=== PATIENT | female | born 1970 | race Hispanic/Latino ===

== ENCOUNTER 2019-07-27 15:40 | Observation (INO) | payer BC ==
[2019-07-27 16:15] LABS: Absolute Lymphocytes (CBC) 2.5 K/uL (0.7-4.9); Basophils % 0.4 % (0-1.3); Hematocrit 42.8 % (36.0-45.0); Lymphocytes % 44.6 % (15.3-44.8); MPV 9.7 fL (7.6-11.3); RBC Red Blood Cell Count 4.86 M/uL (3.86-4.86)
[2019-07-27 16:16] LABS: Urine Appearance CLEAR; Urine Bilirubin NEGATIVE (NEG); Urine Blood NEGATIVE (NEG); Urine Color YELLOW; Urine Glucose NEGATIVE (NEG); Urine Protein NEGATIVE (NEG); Urine Specific Gravity 1.015 (1.005-1.030); Urine Urobilinogen 0.2 mg/dL (0.2-1.0)
[2019-07-27] MEDS ORDERED: SCOPOLAMINE HYDROBROMIDE PATCH TD ONE (16:19)
[2019-07-27] MEDS ORDERED: Ringers Lactate 1,000 ML IV ONE (16:19)
[2019-07-27 16:23] LABS: Urine Microscopic Reflex NO UMIC
[2019-07-27] MEDS ORDERED: SUCCINYLCHOLINE 20 MG/ML (10 ML) IV ONE (17:00)
[2019-07-27] MEDS ORDERED: FENTANYL CITR 250 MCG/5 ML ONE (17:04)
[2019-07-27] MEDS ORDERED: ROCURONIUM 50 MG/5 ML VIAL IV ONE ×2 (17:04→18:58)
[2019-07-27] MEDS ORDERED: PROPOFOL 200 MG/20 ML VIAL IV ONE (17:04)
[2019-07-27] MEDS ORDERED: MIDAZOLAM HCL 2 MG/2 ML INJ ONE (17:05)
[2019-07-27] MEDS ORDERED: BUPIVACAINE 0.25% PF 30 ML VIAL ONE (17:19)
[2019-07-27] MEDS ORDERED: GLYCOPYRROLATE 0.2 MG/ML SYR ONE ×2 (18:10→19:08)
[2019-07-27] MEDS: Ringers Lactate 1,000 ML IV ONE ×2 (18:15→18:33)
[2019-07-27] MEDS ORDERED: KETOROLAC 30 MG/ML INJ ONE (18:55)
[2019-07-27] MEDS ORDERED: NEOSTIGMINE 1 MG/ML -10 ML VIAL ONE (19:08)
[2019-07-27] MEDS ORDERED: ONDANSETRON 4 MG/2 ML VIAL ONE (19:39)
[2019-07-27] MEDS ORDERED: PROMETHAZINE 25 MG/ML VIAL ONE (19:49)
[2019-07-27] MEDS: HYDROMORPHONE HCL 1 MG/ML INJ ONE ×2 (19:54→19:59)
[2019-07-27 20:02] VITALS: O2SAT 98
[2019-07-27 20:53] VITALS: BMI 27.8
[2019-07-27 21:08] VITALS: BP 126/74; TEMP 98.4
--- NOTE | 2019-07-28 02:45 | OP ---
Date of Procedure: 07/27/2019 Surgeon: Kortney Fam MD Director Broadcast: Farhana Watters. Preoperative Diagnoses: Left lower quadrant pain, left adnexal mass 4 cm, possible torsion. Postoperative Diagnoses: Left lower quadrant pain, left paratubal cyst and hydrosalpinx, dense bilat eral tubo-ovarian adhesions to the sigmoid colon to the lateral wall and sigmoid colon to the vaginal cuff and the lateral hickman. Procedures Performed: Diagnostic laparoscopy; bilateral salpingo-ovariolysis; extensive lysis of sig moid adhesions from the lateral hickman on both sides and the vaginal cuff, as well as from the ovaries , which were densely adhered to the bowel; and right ovariopexy. Anesthesia: General endotracheal. Specimens: Bilateral tubes and left ovary. Complications: No complications. Drains: No drains. Condition: Stable. Estimated Blood Loss: Minimal. Findings: Appendix normal. Bladder unremarkable. Adhesions as discussed above. The right ovary had to be released from the adhesions at the level of the vaginal cuff and right late ral wall and ovariopexy was done to the pelvic sidewall peritoneum at the level where the round ligam ent was taken. This was done to make sure that there was no ovarian torsion if there was a cyst that would form on t he right ovary. Indications For Procedure: Patient is a 48-year-old, presented with acute onset left lower quadrant pain. CT scan showed a 1.5 cm cyst on the left ovary. However, on the transvaginal ultrasound, ther e appeared to be a cyst on the left ovary about 4 cm. Patient had acute onset tenderness and pain an d the tenderness was severe. Pain radiating all the way up to her left upper back. No costovertebra l angle tenderness. After clinical exam and evaluation, patient was thought to have potentially ovar eboni torsion, so diagnostic laparoscopy was to be performed. Left ovarian cystectomy and preservation of the ovary were discussed, possible oophorectomy was also discussed. Bilateral salpingectomy tube s were found was discussed and then the patient was brought to the OR. Description Of Procedure: After informed consent was verified, she was taken back to OR, placed in s upine fashion on the operating table. General anesthesia was given. Patient was placed in the dorsa l lithotomy position. Pelvic exam was performed. No adnexal masses were palpable. Abdomen, vulva, vagina, and perineum were prepped and draped in a sterile fashion. No antibiotics were given. SCDs were not indicated by ACOG guidelines. Fairbanks was placed to drain the bladder, and a vaginal manipulator with sponge on a stick was placed. 1 cm infraumbilical incision was made with a scalpel along the umbilical scar for the abdominoplasty and incision was made on the fascia, incised with 15 blade and tagged with 0 Vicryl sutures. Periton eum was picked up with hemostats and entered sharply. S-retractors were placed. Tory introduced. Peritoneal cavity was insufflated optimally. Patient was placed in Trendelenburg position after sit e of entry was checked and was unremarkable. Upper abdominal surface was unremarkable as well. Then , visualized the adhesions. Left lower quadrant 5 and suprapubic 5 ports were placed after Marcaine was injected in the sites at the level of the fascia and the skin and the pelvic cavity was surveyed. There were adhesions of the sigmoid epiploica to the anterior abdominal wall on the left side. The n, there were adhesions of the sigmoid colon starting at the natural attachment and from there all th e way to the tubes and ovaries very densely, specially the left ovary was extremely densely adhered t o the fat surrounding the bowel wall. On the right side, similar problem was also encountered; howev er, this was more stuck at the level of the vaginal cuff. Due to the patient's pain being on the left side with also hydrosalpinx noted, paratubal cyst noted, so plan was to remove the tube and release the ovary in an attempt to take down the adhesions of the bowel from the pelvic sidewall. A window was created enough after the tube was detached from the dary ewall as well as ovary. There was a window between the sidewall and the ovarian adhesion to the sigm oid colon through which there could be an internal hernia. So, at this point, it was very important I release the ovary from the bowel and so this was done. The plane between the ovary immediately nex t to the ovarian surface was opened up, and gradually staying in the fat keeping the fat towards the bowel wall dissection was performed carefully using the bipolar sparingly. Tip of the LigaSure was u sed for cauterizing the vessels here within the fat. The entire ovary was then removed with sharp di ssection with scissors mostly. Once this was released from the bowel, then the mesosalpinx had been dissected. The tube was dissected away from the sidewall and air was removed. The infundibulopelvic ligament was isolated further it from the medial leaf of the broad ligament, where the ur eter was present; and once the pedicle was nicely released, then this was taken down with the help of the LigaSure and the specimen placed in the cul-de-sac. The sigmoid adhesions to the left aspect of the vaginal cuff and left lateral wall were all taken down with sharp dissection with scissors witho ut entering the peritoneum and staying on the side of the colon. Once this was all done and this was released, there was dense adhesion of the bowel wall to the posterior aspect of the vaginal cuff, so this was released gradually by staying on top of the vaginal cuff, although there was a good plane w here the with the adhesions could be taken down sharply with the help of scissors. The entire dissec tion was performed with scissors. Once the bowel wall was released from the vaginal cuff, the vaginal manipulator was moved accordingly to help with countertraction. Then, attention was directed to the right side. The entire sigmoid c olon from the right sidewall was released and the adhesions of the tube to the bowel were released. The tube was from the ovary. It was surrounding the medial aspect of the ovary and all leatha und it. The tube was then removed. Then, another window was between the ovary and the sigmoid colon , and so the ovary was dissected away from the sigmoid colon epiploicae. Then, once this was detache d, the right ovary was released and it was released from the sidewall as well by staying on the perit tovar side and the ovarian tissue from the sidewall carefully avoiding the ureter. Once this was done and adequate mobilization was performed on the infundibulopelvic ligament, here th is was taken with the help of 3-0 Monocryl sutures. It was sutured to the sidewall peritoneum at the distal part of the area where the round ligament was taken down. On visualization of the ureter, th e ureter was in the medial leaf. There were adhesions of the infundibulopelvic ligament and the broa d ligament folding to the inferior aspect of the broad ligament overlying the ureter, and this space was slightly obliterated. I did not have to release all this in order to perform the ovariopexy, so I just left them there, but the ureter had normal peristalsis all the way to the ureteric tunnel. Th e pexy was done with 2 sutures of [id number]-gc-glfj and then spysfo-st-jpmal was performed to the sidewa ll. The ends were cut very short. Thorough irrigation and suction were performed. There was excell ent hemostasis on the bowel wall. No bleeding. In the fat surrounding the bowel, there was some ble eding, which was cauterized with the help of the tip of the LigaSure. There was excellent hemostasis . Good vascularized tissue on the bowel wall, not even a serosal tear could be appreciated at this p oint. Thorough irrigation and suction were performed in the pelvic cavity. 10 scope was changed to a 5 and bag placed through the suprapubic incision and all 3 specimens placed in here and retrieved. Thorough irrigation and suction were performed. Marcaine was injected at the sites of all 3 incisio ns. The trocar was removed and gas was desufflated. Fascia was closed with 0 Vicryl tag sutures tie d together and then subcutaneous single 0 Vicryl suture. All the skin incisions were closed with the help of interrupted Vicryl sutures 4-0 and then Dermabond placed, and vaginal sponge and stick were removed. Fairbanks was removed. Instrument, needle, and sponge counts were correct at the end the case. Patient tolerated the procedure well. She was recovered from anesthesia and taken to PACU in stabl e condition. She has intact 1 ovary, which is the right one. Both tubes were removed and the left o vary was removed as well. All the bowel adhesions were released and the pelvis was completely free o f adhesions as well as it was hemostatic. She will follow up with me in 1 week. She will be [facility] later today. ELÍAS/LEONID Voice ID: [id number] Report ID: [id number]
== END 2019-07-27 21:55 | disposition home or self-care (01) ==
LOC: OR 15:40 → 2ND-WC 20:26
PROVIDERS: ADMIT Obstetrics & Gynecology; ATTEND Obstetrics & Gynecology
PROC: 0UT14ZZ Resection of Left Ovary, Percutaneous Endoscopic Approach (ICD-10-PCS; 2019-07-27)
PROC: 0UT74ZZ Resection of Bilateral Fallopian Tubes, Percutaneous Endoscopic Approach (ICD-10-PCS; 2019-07-27)
PROC: 0UN24ZZ Release Bilateral Ovaries, Percutaneous Endoscopic Approach (ICD-10-PCS; principal; 2019-07-27 17:00)
DX: N83.292 Other ovarian cyst, left side (principal); N83.8 Other noninflammatory disorders of ovary, fallopian tube and broad ligament; N70.11 Chronic salpingitis; N73.6 Female pelvic peritoneal adhesions (postinfective)
CPT/HCPCS: 85025; 36415; 86900; 86850; 86901; 88305; 81003; 58660; 58661; J2704; J2710; J2550; J0330; J2250; J3010; J1170; J7120 ×2; J2405; G0379; G0378

== ENCOUNTER 2023-03-15 04:30 | Emergency (ER) | payer BC ==
--- OUTSIDE RECORDS SUMMARY | 2023-03-15 04:33 | XMS REPORT | Continuity of Care Document ---
:1970 Author Organization [facility] t Address [address] [place] [address] [address] [place] [address] Care Team Providers Name Role Phone Erica Mac Primary Care Physician [phone] ERICA RAMIREZ Attending Clinician Unavailable Radiology Attending Clinician Unavailable RADIOLOGY Attending Clinician Unavailable Lab, Adc Fam Pob I Attending Clinician Unavailable Luli Azar Attending Clinician LULI AL Attending Clinician Unavailable Payers Payer Name Policy Type Policy Number Effective Date Expiration Date S ource Problems This patient has no known problems. Allergies, Adverse Reactions, Alerts Allergy Allergy Status Severity Reaction(s) Onset Inactive Treating Comm ents Source Name Type Date Date Clinician NO KNOWN Drug Active [facility]ERGIE Class [facility] Social History Social Habit Start Date Stop Date Quantity Comments Source Exposure to 2022-06-29 2022-07-09 Not sure [facility] SARS-CoV-2 (event) 00:00:00 09:34:00 Medica l Branch Sex Assigned At [birth year] [facility] 00:00:00 00:00:00 Medical Branch Smoking Status Start Date Stop Date Source Tobacco smoking consumption [facility] unknown Branch Medications This patient has no known medications. Procedures Procedure Date / Time Performing Clinician Source Performed BI ULTRASOUND BREAST 2022-07-09 15:56:00 Estefania [facility] COMPLETE BILATERAL Erica Medical Branc h BI DIAGNOSTIC 2022-07-09 15:11:00 [facility] TOMOSYNTHESIS BILATERAL Medical Branch Encounters Start End Encounter Admission Attending Care Care Encounter Source Date/Time Date/Time Type Type Clinicians Facility Department ID 2023-02-17 Outpatient RAMIREZ, STLMLC STLMLC [id number] Common 13:23:01 ERICA [id number] [facility] 2023-02-13 Outpatient RAMIREZ, STLMLC STLMLC [id number] Common 16:37:01 ERICA [id number] [facility] 2023-02-10 Outpatient RAMIREZ, STLMLC STLMLC [id number] Common 11:23:04 ERICA [id number] [facility] 2022-07-31 Outpatient RAMIREZ, STLMLC STLMLC [id number] Common 13:28:02 ERICA [id number] [facility] 2022-04-10 Outpatient RAMIREZ, STLMLC STLMLC [id number] Common 13:03:02 ERICA [id number] [facility] 2022-07-09 2022-07-09 Hospital Radiology [facility] [id number] Univers 09:37:53 23:59:00 Encounter SPECIALTY [id number] [phone] [facility] [address] [place] [address] 2022-07-09 2022-07-09 Outpatient R RADIOLOGY [facility] [id number] Univers 09:36:31 09:36:00 ity of [facility] 2022-07-09 2022-07-09 Hospital Radiology [facility] [id number] Univers 09:30:00 09:36:00 Encounter SPECIALTY [id number] [id number] [phone] [facility] [address] [place] [address] 2021-01-09 2021-01-09 Laboratory Lab, Adc Fam Pob I [facility] [id number]. [id number] Univers 10:09:06 10:29:06 Only Luli Al [id number] ity of [place] [id number] [place] as Professio [id number] [address] One 2021-01-09 2021-01-09 Outpatient R [facility] [id number] Univers 10:20:00 10:20:00 [facility] 2021-01-09 2021-01-09 [facility] [id number] Univers 10:20:00 10:20:00 [facility] 2020-04-30 2020-04-30 Laboratory Lab, [facility] Pob [facility] 1.2. [id number] Univers 15:59:38 16:19:38 Only Luli Al [id number] ity of [place] [id number] [place] [facility] Professio [id number] [address] 2020-04-30 2020-04-30 [facility]patient [facility] [id number] Univers 16:00:00 16:00:00 [facility] Results Test Description Test Time Test Comments Results Result Comments Source SARS-CoV-2 (COVID-19), RT-PCR/TMA 2021-11-08 07:14:45 Test Item Value Reference Range Interpretation Comme nts SARS-CoV-2 INTERPRETATION POSITIVE SEE NOTE A S ARS-CoV-2 RNA DETECTEDPositive (test code = 41086) results are indicative of the presence of ELKE S-CoV-2 RNA;clinical co rrelation with patient history and other diagnosticinfor mation is necessary to de termine patient infection statu s.Positive results do not rule out bacterial infection or co -infectionwith other viruses. Positive and negative predic tive values oftesting are h ighly dependent on prevalence. SOURCE (test code = 31834) NASOPHARYNGEAL Note: Methodology is Yakelin Rina Real-Time RT-PC R. The expected result or refer ence range is NEGATIVE (Not D etected). For more information reg nohemy COVID-19 testing to incl ude clinicalinforma tion, methodology detail, intende d use, FDA authorization a ndrecommended fact sheets for yemi ents or healthcare providers, see [facility] Announcement: S ARS-CoV-2 (COVID-19) by Rolo CAMARILLO at URL below (note,fact shee ts are provided by method given in report:https:// www.exozet/cl inicians/client -communications/ Alternatively, see downloadable PDF fact sheet at:https://www. exozet/COVID- 19-RT-PCR UNLES S OTHERWISE INDICATED, ALL TESTING PERFORMED ATCLINICAL PATH OLOGY LABORATORIES, [facility]. [address] [place] [address] 4 REGISTERED NURSE TEACHER: LINO VILLAFANA M.D. CLIA NUMBER [id number] CAP ACCREDITATION N O. [id number]
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
[2023-03-15] MEDS ORDERED: IBUPROFEN 400 MG TAB ONE (05:40)
[2023-03-15] MEDS ORDERED: IBUPROFEN 200 MG TAB PO ONE (05:40)
[2023-03-15] MEDS ORDERED: SILVER SULFADIAZINE 1% 25 GM TOP ONE (05:42)
[2023-03-15 06:01] VITALS: TEMP 97.9
[2023-03-15 06:02] VITALS: BP 148/103; O2SAT 97
== END 2023-03-15 05:55 | disposition home or self-care (01) ==
LOC: ER 04:30
DX: T22.211A Burn of second degree of right forearm, initial encounter (principal); T22.212A Burn of second degree of left forearm, initial encounter; T31.0 Burns involving less than 10% of body surface; S51.811A Laceration without foreign body of right forearm, initial encounter; F17.210 Nicotine dependence, cigarettes, uncomplicated; Z88.5 Allergy status to narcotic agent
CPT/HCPCS: 99283